=== PATIENT | male | born 1990 | race Caucasian/White ===

== ENCOUNTER 2018-02-09 03:08 | Emergency (ER) | payer SELFPAY ==
[2018-02-09] MEDS ORDERED: Fentanyl 100 MCG/2 ML VIAL ONE (03:44)
[2018-02-09 04:11] LABS: #Basophils 0.1 thou/uL (0.0-0.2); #Lymphocytes 1.4 thou/uL (1.20-3.40); #Neutrophils 17.2 thou/uL (1.40-6.50); %Basophils 0.3 % (0.0-1.0); %Eosinophils 0.1 % (0.0-10.0); %Monocytes 5.2 % (0.0-10.0); %Neutrophils 87.4 % (42.0-75.0); Hemoglobin 16.2 g/dL (14.0-18.0); Mean Corpuscular HGB CONC 35.5 g/dL (32.0-36.0); Mean Corpuscular Hemoglobin 32.3 pg (27.0-31.0); Mean Platelet Volume 6.9 fL (7.4-10.4); Platelet Count 316 thou/uL (130-400); RBC Distribution Width 11.5 % (11.5-14.5); Red Blood Cell (RBC) Count 5.03 mill/uL (4.70-6.10); White Blood Cell (WBC) Count 19.7 thou/uL (4.8-10.8)
[2018-02-09] MEDS ORDERED: Metoclopramide HCl 10 MG/2 ML VIAL ONE (04:16)
[2018-02-09 04:19] LABS: PTT 25.5 SEC (22.9-36.1); Prothrombin Time 13.5 SEC (12.0-14.7)
[2018-02-09] MEDS ORDERED: Ketorolac Tromethamine 30 MG/ML VIAL ONE (04:26)
[2018-02-09 04:46] LABS: ALT (SGPT) 33 U/L (8-55); AST (SGOT) 29 U/L (5-34); Albumin 4.5 g/dL (3.5-5.0); Alkaline Phosphatase 83 U/L (40-150); Anion Gap 16 mmol/L (10-20); BUN (Urea Nitrogen) 18 mg/dL (8.9-20.6); Calc. Creatinine Clearance 0 mL/min (70-130); Carbon Dioxide 20 mmol/L (22-29); Chloride 107 mmol/L (98-107); Estimated GFR-MDRD 64; Glucose 140 mg/dL (70-105); Potassium 3.7 mmol/L (3.5-5.1); Protein, Total 7.5 g/dL (6.0-8.3); Sodium 139 mmol/L (136-145)
[2018-02-09] MEDS ORDERED: cefTRIAXone\\ROCEPHIN 1 GM VIAL ONE (05:44)
[2018-02-09] MEDS ORDERED: Sodium Chloride 0.9% 100 ML ONE (05:44)
[2018-02-09 06:54] LABS: Bilirubin Small (Negative); Blood, Urine Large (Negative); Clarity CLEAR (Clear); Glucose, Urine (Dipstick) Negative (Negative); Leukocyte Trace (Negative); Nitrite Negative (Negative); Protein, Urine (Dipstick) 30 mg/dL (Neg-Trace); Specific Gravity, Urine 1.039 (1.002-1.036)
[2018-02-09 06:57] LABS: Bacteria/HPF None Seen HPF (None Seen); Hyaline Casts/LPF 4-6 HYALINE CAST LPF (0-3 Hyaline); Pathc Cast-AUWi Flag 0.29 (0-2.49); RBC/HPF GREATER THAN 50-TNTC HPF (0-3); Squamous Epithelial 0-3 HPF (0-3); WBC/HPF 0-3 HPF (0-3)
--- NOTE | 2018-02-09 10:05 | ULT ---
PRELIMINARY REPORT/[facility]/EMERGENTY AFTER-HOURS PROCEDURE US Scrotum EXAM DATE/TIME: 02/09/2018 3:26 AM CLINICAL HISTORY: 27 years old, male; Pain and signs and symptoms; Edema; Scrotum pain; Patient HX: Left test pain jerzy ght, nausea TECHNIQUE: Real-time ultrasound of the scrotum with color Doppler and image documentation. COMPARISON: No relevant prior studies available. FINDINGS: Right testicle: No acute findings. No mass. No torsion. Measures 3.2 x 4.7 cm Left testicle: No acute findings. No mass. No torsion. Measures 3.1 x 4.5 x 2.3 cm Epididymides: Hypoechoic left epididymal tail with mildly increased blood flow. Small cysts or sperma toceles in bilateral epididymal heads Scrotum: No acute findings. IMPRESSION: 1: Hypoechoic left epididymal tail with mildly increased blood flow. Consistent with epididymitis on the left 2: Testicles unremarkable. No testicular torsion Thank you for allowing us to participate in the care of your patient. Dictated and Authenticated by: Zohaib Duran MD 02/09/2018 4:29 AM Central Time ([place] & [place]) EMERGENT AFTER HOURS SCROTAL ULTRASOUND WITH DOPPLER: FINAL REPORT: IMPRESSION: I agree with the preliminary interpretation given by [facility]. Findings suspicious for left epididymitis. POS: [facility]
--- NOTE | 2018-02-09 10:06 | CT ---
PRELIMINARY REPORT/[facility]/EMERGENTY AFTER-HOURS PROCEDURE CT Abdomen and Pelvis Without Intravenous Contrast EXAM DATE/TIME: 02/09/2018 4:08 AM CLINICAL HISTORY: 27 years old, male; Pain and signs and symptoms; Other: Hematuria; Other: Testicular; Patient HX: Er 1; Hematuria; M27 reports to ed via transfer from [place] for left testicular pain. PT reports pain started approximately x4.5 hours ago. PT reports went to lay down in bed and shortly after had an immediate onset of left testicular pain. PT reports pain occurred 8 months ago however resolved on it s own. PT denies any abdominal pain, cp or dysuria. Ems reports nausea and vomiting en route to ed. TECHNIQUE: Axial computed tomography images of the abdomen and pelvis without intravenous contrast. Coronal reformatted images were created and reviewed. COMPARISON: No relevant prior studies available. FINDINGS: Lower thorax: No acute findings. ABDOMEN: Liver: Normal. No mass. Gallbladder and bile ducts: Normal. No calcified stones. No ductal dilation. Pancreas: Normal. No ductal dilation. Spleen: Normal. No splenomegaly. Adrenals: Normal. No mass. Kidneys and ureters: 3 x 2 mm stone in the left distal ureter. Mild to moderate left hydronephrosis. Stones in the left kidney. Right kidney without acute abnormality Stomach and bowel: Normal. No obstruction. No mucosal thickening. Appendix: No evidence of appendicitis. PELVIS: Bladder: Unremarkable as visualized. Reproductive: Unremarkable as visualized. ABDOMEN and PELVIS: Intraperitoneal space: Normal. No free air. No significant fluid collection. Bones/joints: No acute fracture. No dislocation. Soft tissues: Unremarkable. Vasculature: Normal. No abdominal aortic aneurysm. Lymph nodes: Normal. No enlarged lymph nodes. IMPRESSION: 1: 3 x 2 mm stone in the left distal ureter. Mild to moderate left hydronephrosis. 2: Stones in the left kidney. Thank you for allowing us to participate in the care of your patient. Dictated and Authenticated by: Zohaib Duran MD 02/09/2018 4:43 AM Central Time ([place] & [place]) FINAL REPORT EMERGENT AFTER HOURS CT ABDOMEN AND PELVIS: COMPARISON: 06/21/2009 FINDINGS: I agree with the preliminary interpretation given by [facility], that there is an obstructing distal left ur eteral calculus. This measures about 5 mm on the coronal images. There is moderate-severe hydroneph rosis with perinephric fat stranding. Left-sided renal calculi are noted, which measure less than a millimeter at the inferior pole. No additional urinary tract calculi are evident. POS: [facility]
[2018-02-10 02:03] LABS: Chlamydia by PCR Not Detected (NotDetected); GC by PCR Not Detected (NotDetected)
== END 2018-02-09 07:30 | disposition home or self-care (01) ==
LOC: ERS 03:08
DX: N45.1 Epididymitis (principal); N13.9 Obstructive and reflux uropathy, unspecified; Z87.891 Personal history of nicotine dependence
CPT/HCPCS: 36415; 74176; 76870; 82550; 85610; 85730; 87086; 87491; 87591; 93976; 96361; 96365; 96367; 96375; J0696; J1885; J2765; J3010; J7050

== ENCOUNTER 2023-02-22 13:38 | Emergency (ER) | payer BC, SELFPAY ==
[2023-02-22] MEDS ORDERED: Ondansetron ODT 8 MG TAB ONE (14:00)
[2023-02-22] MEDS ORDERED: Ondansetron PF 4 MG/2 ML Vial ONE (14:00)
[2023-02-22] MEDS ORDERED: Ketorolac Tromethamine 30 MG/ML VIAL ONE (14:21)
[2023-02-22 14:23] LABS: #Basophils 0.1 thou/uL (0.0-0.2); #Eosinphils 0.2 thou/uL (0.0-0.7); #Monocytes 0.8 thou/uL (0.11-0.59); %Basophils 0.8 % (0.0-1.0); %Eosinophils 1.7 % (0.0-10.0); %Lymphocytes 18.7 % (21.0-51.0); %Monocytes 5.8 % (0.0-10.0); %Neutrophils 72.6 % (42.0-75.0); Hemoglobin 17.1 g/dL (14.0-18.0); Mean Corpuscular HGB CONC 34.9 g/dL (32.0-36.0); Mean Corpuscular Hemoglobin 30.6 pg (27.0-31.0); Mean Corpuscular Volume 87.8 fl (78.0-98.0); Mean Platelet Volume 10.2 fL (7.4-10.4); Platelet Count 340 10x3/uL (130-400); RBC Distribution Width 12.4 % (11.5-14.5); Red Blood Cell (RBC) Count 5.58 mill/uL (4.70-6.10); White Blood Cell (WBC) Count 13.8 10x3/uL (4.8-10.8)
[2023-02-22 14:27] LABS: Bilirubin Negative (Negative); Blood, Urine Large (Negative); Glucose, Urine (Dipstick) Negative (Negative); Ketone, Urine Trace mg/dL (Negative); Leukocyte Negative (Negative); Nitrite Negative (Negative); Protein, Urine (Dipstick) 30 mg/dL (Neg-Trace); pH, Urine 7.5 (5.0-9.0)
[2023-02-22 14:35] LABS: Clarity Hazy (Clear)
[2023-02-22 14:36] LABS: CAUTI Indications for Culture Dysuria,urgency,freq; RBC/HPF Greater than 50 HPF (0-3); Urine Culture Reflex No No; WBC/HPF 0-3 HPF (0-3)
[2023-02-22 14:51] LABS: ALT (SGPT) 26 U/L (8-55); AST (SGOT) 28 U/L (5-34); Albumin 4.6 g/dL (3.5-5.0); Alkaline Phosphatase 105 U/L (40-110); Anion Gap 16 mmol/L (10-20); BUN (Urea Nitrogen) 15 mg/dL (8.9-20.6); Bilirubin, Total 0.3 mg/dL (0.2-1.2); Calc. Creatinine Clearance 0 mL/min (70-130); Calcium 10.2 mg/dL (7.8-10.44); Carbon Dioxide 19 mmol/L (22-29); Chloride 109 mmol/L (98-107); Estimated GFR 89; Globulin 3.2 g/dL (2.4-3.5); Glucose 75 mg/dL (70-105); Potassium 4.4 mmol/L (3.5-5.1); Protein, Total 7.8 g/dL (6.0-8.3); Sodium 140 mmol/L (136-145)
== END 2023-02-22 15:42 | disposition home or self-care (01) ==
LOC: ERS 13:38
DX: N13.2 Hydronephrosis with renal and ureteral calculous obstruction (principal); I10 Essential (primary) hypertension; F17.210 Nicotine dependence, cigarettes, uncomplicated
CPT/HCPCS: 74176; 76870; 80053; 81001; 85025; 93976; 96374; 96375; J1885; J2405; Q0162